=== PATIENT | male | born 1955 | race African-American/Black ===

== ENCOUNTER 2016-12-25 14:13 | Emergency (ER) | payer BC ==
[2016-12-25 14:25] VITALS: TEMP 97.8; BMI 31.9
--- NOTE | 2016-12-25 15:07 | PDOC ---
History of Present Illness - General History Source: Patient Exam Limitations: No Limitations <Danielle Mancera - Last Filed: 12/25/16 15:37> - General History Source: Patient Exam Limitations: No Limitations <Irene Hughes - Last Filed: 12/28/16 09:48> - General Chief Complaint: Chest Pain Stated Complaint: CHEST PAIN Time Seen by Provider: 12/25/16 14:53 - History of Present Illness Initial Comments: 12/25/16 15:37 The patient is a 61 year old male, with a significant past medical history of hypertension, who presents to the emergency department complaining of chest pain , shortness of breath, wheezing, and coughing for approximately 1 day. The patient describes his chest pain as a burning sensation. He reports his chest pain is pleuritic in nature. He rates his pain as a 9/10 when he coughs and a 6/ 10 when coughing ceases. The patient reports his cough is productive of yellow sputum. He states he becomes suffocated secondary to chest pain and coughing. The patient denies any diaphoresis or palpitations. The patient denies any fever , chills, headache, or dizziness. The patient denies any abdominal pain, nausea , vomiting, diarrhea, constipation, or changes in urinary patterns. The patient denies any history of heart failure. The patient denies any recent travel or sick contacts. Allergies: None reported. Past Surgical History: Right shoulder surgery Social History: Non-smoker. Denies alcohol or drug use. PCP: Dr. Martinez (Danielle Mancera) Past History <Danielle Mancera - Last Filed: 12/25/16 15:37> - Past Medical History HTN: Yes - Psycho/Social/Smoking Cessation Hx Anxiety: No Suicidal Ideation: No Smoking History: Never smoked Have you smoked in the past 12 months: No Information on smoking cessation initiated: No Hx Alcohol Use: No Drug/Substance Use Hx: No Substance Use Type: None <Irene Hughes - Last Filed: 12/28/16 09:48> - Past Medical History Allergies/Adverse Reactions: Allergies Allergy/AdvReac Type Severity Reaction Status Date / Time No Known Allergies Allergy Verified 12/25/16 14:20 Home Medications: Ambulatory Orders Albuterol 0.083% Nebulizer Annalise [Ventolin 0.083% Nebulizer Soln -] 1 neb NEB Q6H PRN #30 vial 12/25/16 Albuterol Sulfate Inhaler - [Ventolin HFA Inhaler -] 1 - 2 inh PO QID PRN #1 inhaler 12/25/16 Azithromycin [Zithromax 250mg Tablets -] 250 mg PO UTDICT #6 tab 12/25/16 Losartan Potassium [Cozaar -] 25 mg PO DAILY 12/25/16 Nebulizer/Compressor [Comp-Air Elite Comp Nebulizer] 1 each ASDIR PRN #1 each 12/25/16 Prednisone [Deltasone -] 60 mg PO DAILY #12 tablet 12/25/16 Review of Systems - Review of Systems Able to Perform ROS?: Yes <Danielle Mancera - Last Filed: 12/25/16 15:37> <Irene Hughes - Last Filed: 12/28/16 09:48> - Review of Systems Comments:: 12/25/16 15:37 GENERAL/CONSTITUTIONAL: No: fever, chills, weakness, loss of appetite. HEAD, EYES, EARS, NOSE AND THROAT: No: change in vision, ear pain, discharge, sore throat, throat swelling. CARDIOVASCULAR: Yes: +chest pain. No: lightheadedness, palpitations, syncope RESPIRATORY: Yes: +cough,+ shortness of breath, +wheezing. No: hemoptysis, stridor. GASTROINTESTINAL: No: nausea, vomiting, abdominal cramping, diarrhea, rectal bleeding, constipation. GENITOURINARY: No: dysuria, hematuria, frequency, urgency, flank pain. MUSCULOSKELETAL: No: back pain, neck pain, joint pain, muscle swelling or pain SKIN AND BREASTS: No: lesions, pallor, rash or easy bruising. NEUROLOGIC: No: headache, vertigo, paresthesias, weakness ENDOCRINE: No: unexplained weight gain or loss HEMATOLOGIC/LYMPHATIC: No: anemia, easy bleeding, swelling nodes (Mancera,Giomilsy) *Physical Exam <Danielle Mancera - Last Filed: 12/25/16 15:37> <Irene Hughes - Last Filed: 12/28/16 09:48> - Vital Signs Last Vital Signs Temp Pulse Resp BP Pulse Ox 97.8 F 80 18 191/111 95 12/25/16 14:20 12/25/16 19:37 12/25/16 19:37 12/25/16 19:37 12/25/16 19:37 - Physical Exam Comments: 12/25/16 15:37 GENERAL: The patient is in no acute distress. HEAD: Normal with no signs of trauma. EYES: PERRLA, EOMI, sclera anicteric, conjunctiva clear. ENT: Ears normal, nares patent, oropharynx clear without exudates. Moist mucous membranes. NECK: Normal range of motion, supple without lymphadenopathy, JVD, or masses. LUNGS: Inspiratory and expiratory wheezing at all lungs rosario. No crackles. HEART:Regular rate and rhythm, normal S1 and S2 without murmur, rub or gallop. ABDOMEN: Soft, nontender, normoactive bowel sounds. No guarding, no rebound. EXTREMITIES: Normal range of motion, no edema. No clubbing or cyanosis. No erythema, or tenderness. NEUROLOGICAL: Cranial nerves II through XII grossly intact. Normal speech. No focal neurological deficits. MUSCULOSKELETAL: Back non-tender to palpation, no CVA tenderness SKIN: Warm, Dry, normal turgor, no rashes or lesions noted. (Danielle Mancera) Heart Score/ECG Review <Danielle Mancera - Last Filed: 12/25/16 15:37> #1 ECG reviewed & interpreted by me at: 18:33 <Irene Hughes - Last Filed: 12/28/16 09:48> #1 12/25/16 18:33 Twelve-lead EKG was performed and reviewed by me. There is normal sinus rhythm with a normal rate of 65 bpm. The axis is normal. The intervals are normal - pr: 166ms, QRS:88ms, QTc:418ms. There are no ST elevations or depressions. T wave flattening laterally (Irene Hughes) ED Treatment Course - LABORATORY CBC & Chemistry Diagram: 12/25/16 15:30 12/25/16 15:30 <Irene Hughes - Last Filed: 12/28/16 09:48> - ADDITIONAL ORDERS Additional order review: 12/25/16 15:30 RBC 5.62 H MCV 82.3 MCHC 33.5 RDW 16.2 H MPV 7.1 L Neutrophils % 30.0 L Lymphocytes % 49.7 H Monocytes % 11.1 H Eosinophils % 8.0 H Basophils % 1.2 - RADIOLOGY Radiology Studies Ordered: Category Date Time Status CHEST X-RAY PORTABLE* [RAD] Stat Radiology 12/25/16 15:16 Completed - Medications Given in the ED: ED Medications Discontinued Medications Generic Name Dose Route Start Last Admin Trade Name Freq PRN Reason Stop Dose Admin Albuterol Sulfate 1 amp 12/25/16 16:45 12/25/16 17:33 Ventolin 0.083% Nebulizer Soln - NEB 12/25/16 16:46 1 amp ONCE ONE Administration Albuterol/Ipratropium 1 amp 12/25/16 15:16 12/25/16 15:44 Duoneb - NEB 12/25/16 15:17 1 amp ONCE ONE Administration Albuterol/Ipratropium 1 amp 12/25/16 15:22 12/25/16 15:45 Duoneb - NEB 12/25/16 15:23 1 amp ONCE ONE Administration HCTZ/Losartan Potassium 1 tab 12/25/16 19:35 12/25/16 19:46 Hyzaar - PO 12/25/16 19:36 1 tab ONCE ONE Administration Methylprednisolone Sodium Succinate 125 mg 12/25/16 15:16 12/25/16 15:45 Solu-Medrol - IVPB 12/25/16 15:17 125 mg ONCE ONE Administration Medical Decision Making <Danielle Mancera - Last Filed: 12/25/16 15:37> <Irene Hughes - Last Filed: 12/28/16 09:48> - Medical Decision Making 12/25/16 15:07 A portion of this note was documented by scribe services under my direction. I have reviewed the details of the note, within reason, and agree with the documentation with the following case summary and management plan written by me. Nursing documentation reviewed and incorporated into medical decision making This is a 61 yo M with a h/o HTN who presents to the ER with a complaint of chest pain, congestion, cough Pt states that he has had these symptoms for several days No fevers or chills Pt has a productive cough no recent travel No history of heart failure No tobacco use No h/o Asthma or COPD On examination: Diffuse inspiratory and expiratory wheezing No tachycardia No murmurs appreciated No lower extremity edema Will do labs Will do Xray Will give Nebs Will give steroids DD: pneumonia, brochitis, asthma exacerbation CXR: clear Pt given Solumedrol and duonebs x 2, Albuterol x 1 Upon re assessment, pt feels better Continues to sound diffusely wheezy Call placed to Dr Gipson will keep pt on observation The patient does not want to stay in the hospital Pt given prednisone, albuterol neb, inhaler, azithromycin I have asked patient to return to the ER immediately for worsening or persistent symptoms Please follow up with your PMD in 2-3 days (Irene Hughes) *DC/Admit/Observation/Transfer <Danielle Mancera - Last Filed: 12/25/16 15:37> - Discharge Dispostion Admit: No <Irene Hughes - Last Filed: 12/28/16 09:48> Diagnosis at time of Disposition: Bronchitis, Congestion of upper airway - Discharge Dispostion Disposition: HOME Condition at time of disposition: Stable - Prescriptions Prescriptions: Nebulizer/Compressor [Comp-Air Elite Comp Nebulizer] 1 each MC ASDIR PRN #1 each PRN Reason: congestion Prednisone [Deltasone -] 60 mg PO DAILY #12 tablet Albuterol 0.083% Nebulizer Annalise [Ventolin 0.083% Nebulizer Soln -] 1 neb NEB Q6H PRN #30 vial PRN Reason: Wheezing Albuterol Sulfate Inhaler - [Ventolin HFA Inhaler -] 1 - 2 inh PO QID PRN #1 inhaler PRN Reason: Wheezing Azithromycin [Zithromax 250mg Tablets -] 250 mg PO UTDICT #6 tab - Referrals Referrals: Juan Theodore MD, MD [Primary Care Provider] - - Patient Instructions Printed Discharge Instructions: DI for Atypical Chest Pain, DI for Acute Bronchitis Additional Instructions: Saul Thanks so much for coming to the ER Please take medications as prescribed Please monitor yourself for fevers Please follow up with Dr Theodore in the next 2-3 days Please return to the ER for fevers, chill, worsening congestion, increased pain , any other concerns or complaints - Post Discharge Activity Work/School Note: Back to Work - Attestations Scribe Attestion: 12/25/16 15:38 Documentation prepared by Danielle Mancera, acting as medical director occupational health for Irene Hughes MD. (Danielle Mancera)
[2016-12-25] MEDS ORDERED: ALBUTEROL SO4 2.5/IPRATROPIUM 0.5 INH SOL 3 ML VIAL.NEB. NEB ONE ×3 (15:16→15:36)
[2016-12-25] MEDS ORDERED: methylPREDNISolone NA SUCC 125 MG/2 ML VIAL IVPB ONE (15:16)
[2016-12-25] MEDS ORDERED: methylPREDNISolone NA SUCC 125 MG/2 ML VIAL ONE (15:36)
[2016-12-25 15:48] LABS: BASOPHIL 1.2 % (0-2.0); MCH 27.5 pg (25.7-33.7); MCHC 33.5 g/dl (32.0-35.9); MEAN CELL VOLUME 82.3 fl (80-96); MEAN PLT VOLUME 7.1 fl (7.5-11.1); PLATELET COUNT 200 K/MM3 (134-434); RDW 16.2 % (11.9-15.9); WHITE BLOOD COUNT 3.7 K/mm3 (4.0-10.0)
[2016-12-25 16:25] LABS: ALBUMIN 3.7 g/dl (3.4-5.0); ANION GAP 8 (8-16); BILIRUBIN,TOTAL 0.5 mg/dL (0.2-1.0); CALCIUM 8.7 mg/dL (8.5-10.1); CO2 28 mmol/L (21-32); CREATININE 1.3 mg/dL (0.7-1.3); GLUCOSE,RANDOM 76 mg/dL (74-106); SGOT/AST 23 U/L (15-37); SGPT/ALT 35 U/L (12-78)
[2016-12-25 16:27] LABS: ALK PHOS 74 U/L (45-117); TROPONIN I < 0.02 ng/ml (0.00-0.05)
[2016-12-25] MEDS ORDERED: ALBUTEROL SO4 0.083% IH SOL 2.5 MG/3 ML VIAL.NEB. NEB ONE ×2 (16:45→16:54)
[2016-12-25] MEDS ORDERED: LOSARTAN 50MG/HCTZ 12.5MG 1 TAB (FP) PO ONE (19:35)
[2016-12-25 19:38] VITALS: BP 191/111; PULSE 80
--- NOTE | 2016-12-28 21:30 | EKG ---
Test Reason : Blood Pressure : / mmHG Vent. Rate : 065 BPM Atrial Rate : 065 BPM P-R Int : 166 ms QRS Dur : 088 ms QT Int : 402 ms P-R-T Axes : 056 002 069 degrees QTc Int : 418 ms NORMAL SINUS RHYTHM NONSPECIFIC T WAVE ABNORMALITY ABNORMAL ECG NO PREVIOUS ECGS AVAILABLE Confirmed by DONALD DRAKE, BUCK ([id number]) on 12/28/2016 9:30:38 PM Referred By: Confirmed By:BUCK BENNETT MD
== END 2016-12-25 19:47 | disposition home or self-care (01) ==
LOC: JER 14:13
PROC: 3E0333Z Introduction of Anti-inflammatory into Peripheral Vein, Percutaneous Approach (ICD-10-PCS; principal; 2016-12-25)
PROC: 3E0F7GC Introduction of Other Therapeutic Substance into Respiratory Tract, Via Natural or Artificial Opening (ICD-10-PCS; 2016-12-25)
PROC: 3E0F7GC Introduction of Other Therapeutic Substance into Respiratory Tract, Via Natural or Artificial Opening (ICD-10-PCS; 2016-12-25)
PROC: 3E0F7GC Introduction of Other Therapeutic Substance into Respiratory Tract, Via Natural or Artificial Opening (ICD-10-PCS; 2016-12-25)
DX: J20.9 Acute bronchitis, unspecified (principal)
CPT/HCPCS: 36415; 71010-TC; 80053; 82550; 82553; 84484; 85025; 93005; 93010; 99283-25